=== PATIENT | male | born 1990 | race Caucasian/White ===

== ENCOUNTER 2019-10-25 11:43 | Emergency (ER) | payer BC ==
[~2019-10-25] VITALS: Ht 177.8 cm; Wt 45.4 kg
== END 2019-10-25 12:13 | disposition home or self-care (01) ==
LOC: ER 11:43
DX: S60.455A Superficial foreign body of left ring finger, initial encounter (principal); Z18.89 Other specified retained foreign body fragments; X58.XXXA Exposure to other specified factors, initial encounter; Y93.89 Activity, other specified; Y92.89 Other specified places as the place of occurrence of the external cause; Y99.8 Other external cause status